=== PATIENT | female | born 1985 | race Caucasian/White ===

== ENCOUNTER 2020-05-01 21:27 | Emergency (ER) | payer OTHER ==
--- NOTE | 2020-05-01 22:21 | CR ---
PROCEDURE INFORMATION: Exam: XR Right Foot Complete Exam date and time: 05/01/2020 10:07 PM Age: 35 years old Clinical indication: Other: Fall; Additional info: Fell down stairs, r) dorsal foot pain. TECHNIQUE: Imaging protocol: XR Right foot. Views: 3 or more views. COMPARISON: No relevant prior studies available. FINDINGS: Bones/joints: There is a small spur at the Achilles tendon insertion upon the calcaneus. There is no evidence of acute fracture. Soft tissues: Normal. IMPRESSION: No acute findings.
--- NOTE | 2020-05-01 22:58 | EDM.PDOC ---
ED HPI GENERAL MEDICAL PROBLEM - General Chief Complaint: Lower Extremity Injury/Pain Stated Complaint: FALL HURT FOOT Time Seen by Provider: 05/01/20 21:50 Source of Information: Reports: Patient History Limitations: Reports: No Limitations - History of Present Illness INITIAL COMMENTS - FREE TEXT/NARRATIVE: ED with report pain to right great toe. stepping down out of camper and fell forwrd. Pain some swelling to toe with increased pain when ambulating. Denies other injury. 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 Right Feet Pain Score (Numeric/FACES): 7 - Related Data Allergies Allergy/AdvReac Type Severity Reaction Status Date / Time No Known Allergies Allergy Verified 05/01/20 21:54 Home Meds: Home Meds Escitalopram Oxalate [Lexapro] 20 mg PO DAILY 05/01/20 [History] Monocyline 0 mg PO DAILY 05/01/20 [History] busPIRone HCl [Buspirone HCl] 15 mg PO DAILY 05/01/20 [History] lamoTRIgine [LaMICtal] 50 mg PO DAILY 05/01/20 [History] metFORMIN [Glucophage] 500 mg PO BIDMEALS 05/01/20 [History] Past Medical History HEENT History: Reports: None Cardiovascular History: Reports: None Respiratory History: Reports: None Genitourinary History: Reports: None 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 ED EXAM, GENERAL - Physical Exam Exam: See Below Exam Limited By: No Limitations General Appearance: Alert, Mild Distress Eye Exam: Bilateral Eye: EOMI Ears: Normal External Exam, Normal TMs Nose: Normal Inspection Throat/Mouth: Normal Inspection Head: Atraumatic Neck: Normal Inspection Respiratory/Chest: No Respiratory Distress Cardiovascular: Normal Peripheral Pulses, Regular Rate, Rhythm Extremities: Joint Swelling. No: Normal Range of Motion (limited right great toe) Neurological: Alert, Oriented Psychiatric: Normal Affect, Normal Mood Skin Exam: Warm, Dry, Intact, Ecchymosis (distal toe) Course - Vital Signs Last Recorded V/S: Last Vital Signs Temp 97.9 F 05/01/20 21:51 Pulse 87 05/01/20 21:51 Resp 16 05/01/20 21:51 BP 138/86 05/01/20 21:51 Pulse Ox 16 L 05/01/20 21:51 Departure - Departure Time of Disposition: 22:53 Disposition: Home, Self-Care 01 Condition: Good Clinical Impression: Injury of toe Qualifiers: Encounter type: initial encounter Laterality: right Qualified Code(s): S99.921A - Unspecified injury of right foot, initial encounter - Discharge Information *PRESCRIPTION DRUG MONITORING PROGRAM REVIEWED*: No *COPY OF PRESCRIPTION DRUG MONITORING REPORT IN PATIENT AMMON: No Instructions: Toe Fracture, [id number] Forms: ED Department Discharge Additional Instructions: alternate tylenol 650mg and ibuprofen 600mg every 4 hours a needed for discomfort weight bearing as tolerated ice elevation 24 hours follow up this monday or monday if not improving post op shoe, advance to solid toe shoe as tolerated Sepsis Event Note (ED) - Evaluation Sepsis Screening Result: No Definite Risk
== END 2020-05-01 23:15 | disposition home or self-care (01) ==
LOC: DL.ED 21:27
DX: S90.111A Contusion of right great toe without damage to nail, initial encounter (principal); E11.9 Type 2 diabetes mellitus without complications; F17.210 Nicotine dependence, cigarettes, uncomplicated; Z79.899 Other long term (current) drug therapy; Z79.84 Long term (current) use of oral hypoglycemic drugs; W20.8XXA Other cause of strike by thrown, projected or falling object, initial encounter
CPT/HCPCS: 73630-RT; 99282; 99283-25